=== PATIENT | female | born 1960 | race Caucasian/White ===

== ENCOUNTER 2021-01-10 18:59 | Inpatient (IN) | payer OTHER ==
[~2021-01-10] VITALS: Ht 172.7 cm; Wt 99.3 kg
[~2021-01-10 18:59] MED LIST: ACETAMINOPHEN325 MG PO; AMLO10 PO; ASPI325EC PO; CIPR500 PO; CLON.2 PO; CLOP75 PO; DULO30 PO; HYDACE5 PO; HYDCHL25 PO; KEFLEX500 MG PO; LEVO750 PO; LISI20 PO; LORA.5 PO; LOSARTAN POTAS100 MG PO; METO25ER PO; METO50 PO; METO50ER PO; Nicoderm Cq1 EAC1 TD; PANT40 PO; Simvastatin20 MG PO; TRIA80TC TOP; VENL37.5 PO; Vitamin D400 UNI1 PO
[2021-01-10 19:52] LABS: BASOPHILS ABSOLUTE AUTO 0.01 K/mm3 (0.00-0.23); BASOPHILS PERCENT AUTO 0 % (0-2); EOSINOPHILS PERCENT AUTO 0 % (0-6); Hemoglobin 10.8 g/dL (11.5-16.0); IMMATURE GRAN ABSOLUTE AUTO 0.13 K/mm3 (0.00-0.10); IMMATURE GRAN PERCENT AUTO 1 % (0-1); LYMPHOCYTES ABSOLUTE AUTO 0.67 K/mm3 (0.84-5.20); LYMPHOCYTES PERCENT AUTO 7 % (21-46); MONOCYTES ABSOLUTE AUTO 0.71 K/mm3 (0.16-1.47); MONOCYTES PERCENT AUTO 7 % (4-13); Mean Corpuscular HGB 26.2 pg (26.0-34.0); Mean Corpuscular HGB Conc 31.8 g/dL (31.5-36.5); Mean Corpuscular Volume 82 fL (80-100); Mean Platelet Volume 11.7 fL (9.1-12.4); NEUTROPHILS ABSOLUTE AUTO 8.55 K/mm3 (1.96-9.15); NEUTROPHILS PERCENT AUTO 85 % (41-73); Platelet Count 146 K/mm3 (150-400); RDW Coefficient Variation 17.6 % (11.7-14.2); RDW Standard Deviation 53.2 fL (35.1-46.3); Red Blood Cell Count 4.13 M/mm3 (3.80-5.20); White Blood Cell Count 10.07 K/mm3 (4.00-11.30)
[2021-01-10 20:05] LABS: Albumin, Blood 2.4 g/dL (3.4-5.0); Albumin/Globulin Ratio 0.5 (0.8-1.8); Bilirubin, Total 0.3 mg/dL (0.1-1.0); Bun/Creatinine Ratio 13.2 (12.0-20.0); Calcium, Blood 7.2 mg/dL (8.5-10.1); Creatinine, Blood 1.82 mg/dL (0.40-1.00); Potassium, Blood 3.4 mmol/L (3.5-5.5); Total Protein, Blood 7.4 g/dL (6.4-8.2)
[2021-01-10 20:51] LABS: SARS-Cov-2 (COVID-19) PCR, MMC POSITIVE (NEGATIVE)
[2021-01-10] MEDS ORDERED: AMLO5 PO (22:44)
[2021-01-10] MEDS ORDERED: METO25ER PO (22:45)
[2021-01-10] MEDS ORDERED: BUSPIRONE HCL7.5 M1 PO (22:46)
--- NOTE | 2021-01-11 04:05 | NUR ---
SHIFT SUMMARY: AOX3, ADMITTED FOR RESPIRTORY FAILURE R/T COVID. HAS HAD SX FOR PAST 10 DAYS, JUST GOT TESTED IN ER AND WAS POSITIVE. STATES FAMILY HAD IT. LUNG SOUNDS ARE COURSE T/O. PLACED ON HIGH FLOW AT 7 LITERS. COUGH IS OCCATIONAL NON-PRODUCTIVE. OCCATIONAL PLEURIC PAIN. ILL APPEARING. POOR APPETITE. FIRST DOSE OF REDISIMIR AND STERIOD GIVEN. SLEPT WELL T/O THE NIGHT. CALL LIGHT IS IN REACH.
[2021-01-11 05:11] LABS: Calcium, Blood 8.4 mg/dL (8.5-10.1); Creatinine, Blood 2.23 mg/dL (0.40-1.00); Potassium, Blood 4.1 mmol/L (3.5-5.5)
--- NOTE | 2021-01-11 16:45 | NUR ---
SHIFT SUMMARY PATIENT DENIES PAIN, NAUSEA, AND SHORTNESS OF BREATH. PATIENT GETS SHORT OF BREATH WITH ACTIVITY, BUT RECOVERS WELL. PATIENT ON 6L HIGH FLOW. PATIENT MAINTAINING SATS IN THE MID 90S. PATIENT ASKED TO HAVE SOFT FOODS DUE TO MISSING TEETH. ORDER CHANGED. EATING AND DRINKING WELL. PATIENT IS A SBA TO THE BATHROOM. PATIENT IS PLEASANT AND COOPERATIVE WITH CARE.
--- NOTE | 2021-01-12 04:27 | NUR ---
NO ACUTE CHANGES OR SIGNIFICANT EVENTS OCCURED OVERINIGHT. PATIENT IS WEARING A NASAL CANNULA THAT IS DELIVERING 6L OF O2. DENIES PAIN. DENIEA NAUSEA. AMBULATING TO THE BATHROOM WITH STAND BY ASSIST. 1 OF 4 REMDESIVIR GIVEN LAST NIGHT.
[2021-01-12 05:36] LABS: Bun/Creatinine Ratio 30.3 (12.0-20.0); Calcium, Blood 8.1 mg/dL (8.5-10.1); Creatinine, Blood 1.32 mg/dL (0.40-1.00); Potassium, Blood 3.8 mmol/L (3.5-5.5)
--- NOTE | 2021-01-12 17:44 | NUR ---
SHIFT SUMMARY PT APPEARED SOB WITH INITIAL ASSESSMENT THIS MORNING WITH HER REPORTING FEELING VERY TIRED. O2 AT 6L/M BY HIGH FLOW. CONTINUOUS PULSE OX PLACED THIS MORNING LATE AND SATS 89-90%. INCREASED TO 8L/M AND HELPING HANDS P.T. IN TO HELP PT WITH PRONING IN MOST COMFORTABLE POSITION. O2 WAS ABLE TO BE DECREASED BACK TO 6L/M WITH SATS IN HIGH 90'S FOR REMAINDER OF DAY.
--- NOTE | 2021-01-13 04:32 | NUR ---
PATIENT ALERT AND ORIENTED X4.WAS ABLE TO WEAN PATIENT FROM 8 LITERS TO 5LITERS ON HIGH FLOW NASAL CANNULA. OXYGEN LEVEL IS GREATER THAN 95%ON 5LITERS. ULTRASOUND DOPPLERS DONE FOR DVTOF BLE AND RESULTS WERE NEGATIVE. NO OTHER ACUTE CHANGES NOTED OVERNIGHT.
[2021-01-13 05:36] LABS: Bun/Creatinine Ratio 34.8 (12.0-20.0); Calcium, Blood 8.6 mg/dL (8.5-10.1); Creatinine, Blood 1.15 mg/dL (0.40-1.00); Potassium, Blood 4.4 mmol/L (3.5-5.5)
--- NOTE | 2021-01-13 14:48 | NUR ---
PERFORMED HOME O2 EVAL. 14:00 RESP EASY, UNLABORED. H/R 72-75 WITH PT AT REST SITTING IN CHAIR AT 5L N/C. RESP 14. MOVED TO R/A SATTING AT 91-92% AFTER 1 MIN. MAINTAINED FOR 3+ MIN. SITTING IN CHAIR, RESP CONTINUE SAME AT 14. EASY, UNLABORED. WALKED PT ABOUT ROOM SEVERAL TIMES. NO OXYGEN. SATS DROPPED TO 89%. RETURNED TO CHAIR. CONTINUED TO MAINTAIN AT 89%. DID NOT IMMEDIATELY RECOVER. PLACED ON 1L O2 N/C. SATS BACK UP TO 93% ON 1L IN LESS THAN 1 MIN. RESP AT 20, WHEN RETURNED TO CHAIR FROM WALK. PT SLOWLY RETURNED BACK TO ORIGINAL OF 14 OVER A 3-4 MIN TIME. HR CONTINUED AT 73-75 DURING AND AFTER GENTLE WALKING IN ROOM.
[2021-01-13] MEDS ORDERED: DECADRON PO (17:26)
--- NOTE | 2021-01-13 18:29 | NUR ---
pt discharged. son has only set of keys. he unable to be contacted/ reset time for discharge for 10 am. by then they can get into house. then have the oxygenb brought to home. leo. daughter to be at admitting desk at 10am. we will need to reschedule leo pt eating dinner sitting in bed. now on 1l o2. sats 92% encouraging her using i/s as approp. bed in low position, call lite in reach, calls ap[rop
--- NOTE | 2021-01-14 04:49 | NUR ---
PATIENT SUMMARY PATIENT IS ALERT AND ORIENTED X4. CALLED MD REGARDING INCREASED BP, ORDERS GIVEN AND COMPLETED ORDERED. NO COMPLAINTS OF CHEST PAIN OR SHORTNESS OF MY SHIFT. VS STABLE FOR PATIENT ON 1L O2 AND 2LO2 WHILE SLEEPING. PLAN FOR DISCHARGE TODAY. ENCOURAGED PATIENT TO INCREASE ACTIVITY TOLERATED AND TO CALL WHEN IN NEED OF ASSISTANCE. PATIENT ABLE TO MOVE FROM BED TO BEDSIDE COMMODE INDEPENDENTLY. ALL CARES COMPLETED AND MEDICATIONS GIVEN ORDERED, ALL UNFINISHED CARES ENDORSED TO ONCOMING SHIFT. wILL CONTINUE TO MONITOR AND PROVIDE CARE.
--- NOTE | 2021-01-14 10:12 | NUR ---
Discharge Summary A/Ox4. Lacking motivation to get out of bed this AM, up to bedside commode x 2. Discharging to home on 1L O2. Portable O2 tank delivered yesterday by [employer] and is in patient's room. Did not wake up to eat breakfast. Called daughter for transport home, verbalized that she just woke up and will be here in 15-20 minutes. Reviewed paperwork with patient, no questions at this time. Meds have been faxed yesterday to [facility], patient confirmed receiving notification of meds filled. Personal belongings will be returned upon leaving hospital. CM to follow up with delivery of O2 concentrator at home.
== END 2021-01-14 11:07 | disposition home or self-care (01) | DRG 177 ==
LOC: ER 18:59 → MEDS 21:16
PROVIDERS: Family Medicine; Student in an Organized Health Care Education/Training Program; ADMIT Internal Medicine
PROC: 8E0ZXY6 Isolation (ICD-10-PCS; principal; 2021-01-10)
PROC: 3E0333Z Introduction of Anti-inflammatory into Peripheral Vein, Percutaneous Approach (ICD-10-PCS; 2021-01-10)
PROC: XW033E5 Introduction of Remdesivir Anti-infective into Peripheral Vein, Percutaneous Approach, New Technology Group 5 (ICD-10-PCS; 2021-01-10)
DX: U07.1 COVID-19 (principal); J12.82 Pneumonia due to coronavirus disease 2019; J96.01 Acute respiratory failure with hypoxia; N18.4 Chronic kidney disease, stage 4 (severe); N17.9 Acute kidney failure, unspecified; E87.6 Hypokalemia; I95.9 Hypotension, unspecified; I12.9 Hypertensive chronic kidney disease with stage 1 through stage 4 chronic kidney disease, or unspecified chronic kidney disease; Z86.73 Personal history of transient ischemic attack (TIA), and cerebral infarction without residual deficits; Z79.899 Other long term (current) drug therapy; Z90.49 Acquired absence of other specified parts of digestive tract; Z87.891 Personal history of nicotine dependence
CPT/HCPCS: 36415; 71045; 80048; 80053; 82947; 85025; 85379; 93005; 93010; 93970; 94762; 96374; 97116; 97162; 99285-25; A9270; J1100; J1650; U0004

== ENCOUNTER 2022-02-12 13:13 | Observation (INO) | payer OTHER ==
[~2022-02-12] VITALS: Ht 170.2 cm; Wt 100.2 kg
[~2022-02-12 13:13] MED LIST changes: +AMLO5 PO; +BUSPIRONE HCL7.5 M1 PO; +DECADRON PO; -VENL37.5 PO; +VENL37.5ER PO
[2022-02-12 14:05] LABS: Albumin/Globulin Ratio 0.7 (0.8-1.8); Bilirubin, Total 0.3 mg/dL (0.1-1.0); Bun/Creatinine Ratio 18.1 (12.0-20.0); Calcium, Blood 8.1 mg/dL (8.5-10.1); Creatinine, Blood 1.77 mg/dL (0.40-1.00); Globulin, Blood 4.5 g/dL (2.2-4.0); Potassium, Blood 3.8 mmol/L (3.5-5.5); Total Protein, Blood 7.5 g/dL (6.4-8.2)
[2022-02-12 15:21] LABS: BASOPHILS ABSOLUTE AUTO 0.07 K/mm3 (0.00-0.23); BASOPHILS PERCENT AUTO 1 % (0-2); EOSINOPHILS ABSOLUTE AUTO 0.22 K/mm3 (0.00-0.68); EOSINOPHILS PERCENT AUTO 2 % (0-6); Hematocrit 20.1 % (33.0-51.0); IMMATURE GRAN ABSOLUTE AUTO 0.05 K/mm3 (0.00-0.10); IMMATURE GRAN PERCENT AUTO 1 % (0-1); LYMPHOCYTES ABSOLUTE AUTO 2.07 K/mm3 (0.84-5.20); LYMPHOCYTES PERCENT AUTO 20 % (21-46); MONOCYTES ABSOLUTE AUTO 1.06 K/mm3 (0.16-1.47); MONOCYTES PERCENT AUTO 10 % (4-13); Mean Corpuscular HGB 17.2 pg (26.0-34.0); Mean Corpuscular HGB Conc 24.9 g/dL (31.5-36.5); Mean Corpuscular Volume 69 fL (80-100); Mean Platelet Volume 10.8 fL (9.1-12.4); NEUTROPHILS ABSOLUTE AUTO 7.14 K/mm3 (1.96-9.15); NEUTROPHILS PERCENT AUTO 67 % (41-73); NRBC ABSOLUTE 0.03 K/mm3 (0.00-0.02); NRBC Auto 0.3 /100 WBC (0.0-0.2); Platelet Count 258 K/mm3 (150-400); RDW Coefficient Variation 19.6 % (11.7-14.2); RDW Standard Deviation 49.1 fL (35.1-46.3); White Blood Cell Count 10.61 K/mm3 (4.00-11.30)
[2022-02-12 18:53] LABS: Percent Saturation 3.1 % (15.0-50.0)
--- NOTE | 2022-02-12 23:14 | NUR ---
TRANSFER NOTE PATIENT TRANSFERRED TO PCU RM 15 AT 1955. REPORT TAKEN BEFORE TRANSFER FROM FER Grigsby RN IN THE ED. PATIENT ABLE TO TRANSFER TO BED FROM [facility] UPON ARRIVAL. VITALS STABLE. TELEMETRY IN PLACE SHOWING NSR WITH HR 60-70S. THIS RN AND GRETTA NAVARRO BEGAN 2ND BLOOD TRANFUSION. SEE CHARTING FOR DETAILS. PATIENT TOLERATING WELL. NO SIGNS/SYMPTOMS OF ADVERSE REACTIONS NOTED. PATIENT WITH STABLE VITALS. DENIES CHEST PAIN/PRESSURE. WEAKNESS NOTED WITH STANDING; DENIES SOB/DIZZINESS WITH MOVEMENT. SBA TO BSC AT THIS TIME. CALLING STAFF APPROPRIATELY. BED IN LOWEST POSITION AND CALL LIGHT WITHIN REACH. VITALS CYCLING Q15 MINUTES DUE TO TRANFUSION.
[2022-02-13 01:14] LABS: Hematocrit 26.7 % (33.0-51.0); Hemoglobin 7.4 g/dL (11.5-16.0); Mean Corpuscular HGB 20.1 pg (26.0-34.0); Mean Corpuscular HGB Conc 27.7 g/dL (31.5-36.5); Mean Corpuscular Volume 73 fL (80-100); Mean Platelet Volume 10.7 fL (9.1-12.4); NRBC ABSOLUTE 0.02 K/mm3 (0.00-0.02); NRBC Auto 0.2 /100 WBC (0.0-0.2); Platelet Count 216 K/mm3 (150-400); RDW Coefficient Variation 20.4 % (11.7-14.2); RDW Standard Deviation 53.1 fL (35.1-46.3); Red Blood Cell Count 3.68 M/mm3 (3.80-5.20); White Blood Cell Count 9.19 K/mm3 (4.00-11.30)
[2022-02-13 01:31] LABS: Bun/Creatinine Ratio 18.1 (12.0-20.0); Calcium, Blood 8.9 mg/dL (8.5-10.1); Creatinine, Blood 1.66 mg/dL (0.40-1.00); Potassium, Blood 4.6 mmol/L (3.5-5.5)
--- NOTE | 2022-02-13 04:26 | NUR ---
SHIFT SUMMARY PATIENT A&O X4. CALM AND COOPERATIVE WITH CARE. DENIES DIZZINESS/SOB. PATIENT FINISHED BLOOD TRANFUSION PER ORDERS. H/H REDRAWN WITH HGB AT 7.4. PATIENT TOLERATED TRANSFUSION WELL WITH NO SIGNS/SYMPTOMS OF ADVERSE REACTIONS. PATIENT AFERBILE. BP STABLE. NSR ON TELE WITH HR IN THE 70S. NS INFUSING AT 100MLS/HR PER EMAR. PATIENT DENIES CHEST PAIN/PRESSURE. PATIENT SBA TO BEDSIDE COMMODE. CALLS APPROPRIATELY. PATIENT CONTINUES TO BE NPO PER ORDER. CONSULT FOR GI BLEED PLACED PRIOR TO PATIENT COMING TO PCU. SCD'S ON BLE FOR VTE PROPHYLAXIS. BED IN LOWEST POSITION AND CALL LIGHT WITHIN REACH. WILL CONTINUE TO MONITOR UNTIL SHIFT CHANGE AT 0700.
[2022-02-13 07:30] LABS: Hematocrit 25.7 % (33.0-51.0); Hemoglobin 7.2 g/dL (11.5-16.0)
--- NOTE | 2022-02-13 07:57 | NUR ---
ASSESSMENT: PT SLEEPING, SNORING SOFTLY. SATS STABLE ON RA. CALL LIGHT IN REACH. NO S/S DISTRESS. WILL ALLOW REST AND DO FULL ASSESSMENT WHEN PT IS AWAKE AND ALERT.
--- NOTE | 2022-02-13 08:57 | NUR ---
ROUNDING: HOSPITALIST AND RESIDENT IN ROOM TO ASSESS PATIENT. AWAITING GI. PT MAY HAVE SIPS OF CLEAR LIQUIDS.
[2022-02-13 12:55] LABS: Hematocrit 26.3 % (33.0-51.0); Hemoglobin 7.1 g/dL (11.5-16.0)
[2022-02-13 13:00] LABS: IMMATURE RETIC FRACTION 32.3 % (2.3-16.0); RETIC HGB EQUIVALENT 15.8 pg (28.20-36.60); RETICULOCYTE ABSOLUTE 0.0483 M/mm3 (0.0200-0.1100); RETICULOCYTE COUNT PERCENT 1.4 % (0.50-2.50)
[2022-02-13 17:05] LABS: Hematocrit 26.2 % (33.0-51.0); Hemoglobin 7.7 g/dL (11.5-16.0)
--- NOTE | 2022-02-13 18:00 | NUR ---
PT HAS BEEN STABLE THIS SHIFT. H+H CONTINUES TO IMPROVE. PT REMAINS NPO, AWAITING GASTRO CONSULT. PT SBA TO COMMODE NEEDED. VOIDING WELL. NO STOOLS THIS SHIFT. SATS STABLE ON RA. PT DOES HAVE SOB WITH ACTIVITY. IV FLUIDS COMPLETED PER ORDERS. PT STARTED ON IV PROTONIX THIS AFTERNOON. PT CALLS APPROPRIATELY NEEDED.
--- NOTE | 2022-02-13 18:36 | NUR ---
CALL PLACED TO GI TO CONFIRM THEY ARE AWARE OF CONSULT AND CHECK DIET STATUS. AWAITING CALL BACK.
[2022-02-13] MEDS ORDERED: AMLO10 PO (20:01)
[2022-02-13] MEDS ORDERED: LOSARTAN POTAS100 M1 PO (20:03)
[2022-02-13] MEDS ORDERED: Lopressor 25 mg25 MG PO (20:04)
--- NOTE | 2022-02-13 20:34 | NUR ---
ASSUMPTION OF CARE THIS RN ASSUMED CARE OF PATIENT AT 1900. REPORT TAKEN FROM TAMI NAVARRO. TAMI NAVARRO PLACED CALL TO MD MERCER PRIOR TO LEAVING REGARDING GI CONSULT. MD WITH ORDERS TO CHANGE PATIENT TO A CLEAR LIQUID DIET. PATIENT WITH STABLE VITALS. DENIES PAIN. DENIES ANY NAUSEA/VOMITING OR A BOWEL MOVEMENT. HGB REMAINS STABLE WITH LAST HGB OF 7.7. PATIENT INDEPENDENT TO BEDSIDE COMMODE. BED IN LOWEST POSITION AND CALL LIGHT WITHIN REACH.
[2022-02-13 22:47] LABS: Albumin, Blood 3.3 g/dL (3.4-5.0); Anion Gap 7 mmol/L (6-16); Blood Urea Nitrogen 23 mg/dL (8-24); Bun/Creatinine Ratio 16.9 (12.0-20.0); CO2, Blood 27 mmol/L (21-32); Calcium, Blood 9.4 mg/dL (8.5-10.1); Chloride, Blood 102 mmol/L (98-108); Creatinine, Blood 1.36 mg/dL (0.40-1.00); Glomerular Filtration Rate 44 (60-); Glucose, Blood 126 mg/dL (70-99); Phosphorus, Blood 3.6 mg/dL (2.5-4.9); Potassium, Blood 4.4 mmol/L (3.5-5.5); Sodium, Blood 136 mmol/L (136-145)
[2022-02-14 04:26] LABS: Hemoglobin 7.6 g/dL (11.5-16.0)
--- NOTE | 2022-02-14 04:45 | NUR ---
SHIFT SUMMARY NO ACUTE CHANGES DURING THIS SHIFT. PATIENT IS A&OX4. INDEPENDENT WITH ADL'S. PATIENT ON CLEAR LIQUID DIET. HGB 7.6. NO NAUSEA/VOMITING REPORTED. DENIES ABD TENDERNESS. NO BM THIS SHIFT. GI CONSULT CALLED IN BY PREVIOUS SHIFT RAMON GARRETT. MEDICATING PER EMAR. PATIENT WITH STABLE VITALS; STARTING BP HOME MEDICATIONS THIS AM FOR HTN. NSR WITH HR 70-80S. DENIES CHEST PAIN/PRESSURE. COMMODE AT BEDSIDE. PATIENT CONTINUES TO BE PALE AND COOL TO TOUCH BUT DENIES DIZZINESS/WEAKNESS AT THIS TIME. STRONG PULSES AND CAP REFILL OF <3SECS. BED IN LOWEST POSITION AND CALL LIGHT WITHIN REACH. WILL CONTINUE TO MONITOR UNTIL SHIFT CHANGE AT 0700.
[2022-02-14 14:51] LABS: Hematocrit 27.2 % (33.0-51.0); Hemoglobin 7.8 g/dL (11.5-16.0)
--- NOTE | 2022-02-14 17:37 | NUR ---
PT GIVEN THOROUGH WRITTEN & VERBAL DC INSTRUCTIONS, EDUCATED ON THE IMPORTANCE OF F/U W/ GI, BEING VIGILANT W/ SYMPTOMS, & RETURNING TO ED IF WORSE IN ANY WAY. UNDERSTANDING VERB. AWAITING TRANSPORT TO ARRIVE.
== END 2022-02-14 18:07 | disposition home or self-care (01) ==
LOC: ER 13:13 → PCU 13:15 → ER 17:13 → PCU 17:13
PROVIDERS: Emergency Medicine; Family Medicine Adult Medicine; Hospitalist; ADMIT Internal Medicine
DX: D62 Acute posthemorrhagic anemia (principal); D50.9 Iron deficiency anemia, unspecified; I12.9 Hypertensive chronic kidney disease with stage 1 through stage 4 chronic kidney disease, or unspecified chronic kidney disease; N18.4 Chronic kidney disease, stage 4 (severe); F17.210 Nicotine dependence, cigarettes, uncomplicated; B18.2 Chronic viral hepatitis C; F10.11 Alcohol abuse, in remission; I95.9 Hypotension, unspecified; F32.A Depression, unspecified; F41.9 Anxiety disorder, unspecified; Z86.73 Personal history of transient ischemic attack (TIA), and cerebral infarction without residual deficits; Z86.16 Personal history of COVID-19
CPT/HCPCS: 36415; 36430; 80048; 80053; 80069; 82272; 82607; 82728; 82746; 83540; 83550; 83880; 84484; 85014; 85018; 85025; 85027; 85045; 86850; 86900; 86901; 86923; 93005; 93010; 96374; 99291-25; A9270; C9113; G0378; J2916; J7030; J7050; P9016

== ENCOUNTER 2025-02-14 22:52 | Emergency (ER) | payer OTHER ==
[~2025-02-14] VITALS: Ht 172.7 cm; Wt 98.9 kg
[~2025-02-14 22:52] MED LIST changes: +LOSARTAN POTAS100 M1 PO; +Lopressor 25 mg25 MG PO; +PANT20 PO
[2025-02-15 02:35] LABS: Source, Urine Clean Catch
[2025-02-15 02:36] VITALS: BP 124/76
[2025-02-15 02:47] LABS: Bilirubin, Urine Neg (Neg); Glucose Qualitative, Urine Neg (Neg); Ketones, Urine Neg (Neg); Leukocyte Esterase, Urine 3+ (Neg); Protein, Urine 3+ (Neg); Specific Gravity, Urine 1.020 (1.003-1.022); Urobilinogen, Urine NORM (Normal)
[2025-02-15 02:54] LABS: Color, Urine Yellow (P-Yellow)
[2025-02-15 02:55] LABS: Red Blood Cells, Urine 0-2 /hpf (0-2); White Blood Cells, Urine 50-100 /hpf (0-5)
[2025-02-15] MEDS ORDERED: CEPH500 PO (03:14)
== END 2025-02-15 03:22 | disposition home or self-care (01) ==
LOC: ER 22:52
PROVIDERS: Emergency Medicine
DX: N30.00 Acute cystitis without hematuria (principal); I12.9 Hypertensive chronic kidney disease with stage 1 through stage 4 chronic kidney disease, or unspecified chronic kidney disease; N18.9 Chronic kidney disease, unspecified; F17.210 Nicotine dependence, cigarettes, uncomplicated; Z86.73 Personal history of transient ischemic attack (TIA), and cerebral infarction without residual deficits; Z79.899 Other long term (current) drug therapy
CPT/HCPCS: 81001; 87077; 87086; 87186; 99283; A9270